=== PATIENT | female | born 1970 | race Caucasian/White ===

== ENCOUNTER 2017-04-01 08:04 | Emergency (ER) | payer MEDICAID ==
[2017-04-01 08:18] VITALS: BP 139/89; PULSE 76; RESP 18; TEMP 98.4; O2SAT 97
--- NOTE | 2017-04-01 08:25 | EDPHY ---
H & P Time Seen by Provider: 04/01/17 08:11 HPI/ROS: CHIEF COMPLAINT: Right hip and leg pain HISTORY OF PRESENT ILLNESS: Patient is been dealing with this for the last 3 years and gets Percocet prescribed by her primary care provider who is Ozzie Guerrero SCRAP CRANE OPERATOR, PDMP reviewed and prescriptions for Percocet dated 01/18, 12/21, 11/23, and 10/26. Patient says the pain is worse over the past 10 days and she has not slept at all for the last 2 days. The patient tells me she has been trying to stay off Percocet and just did not get a prescription filled February. She describes pain in her right lower back and buttock radiating down her hip into her right thigh. Not associated with weakness or numbness in extremities or bowel or bladder trouble. This is identical in quality location and type to her previous pain but is just worse in severity. REVIEW OF SYSTEMS: No fever or chills PAST MEDICAL HISTORY: As in HPI, , bunionectomy Social history: No recent alcohol General Appearance: Alert and conversant, cooperative. No lumbar spine tenderness to palpation. Tenderness over the right sciatic notch. No change in pain with hip rotation or axial loading on the right. Normal reflexes 2+ patellar bilateral and symmetric. Toes downgoing, no clonus, strength and sensation intact on the right and left legs. Straight leg raising negative bilaterally. Emergency Department course/MDM: Patient presents with acute exacerbation of her sciatica. She tells me her primary care provider's out of town until the end of the month. She is requesting Percocet to help her sleep. Call is placed to her primary care provider's office at 8:23 a.m.; no response or call back. Rx for #11, all further pain medication to be prescribed by PCP. Smoking Status: Never smoked Constitutional: Initial Vital Signs Temperature (C) 36.9 C 04/01/17 08:10 Heart Rate 76 04/01/17 08:10 Respiratory Rate 18 04/01/17 08:10 Blood Pressure 139/89 H 04/01/17 08:10 O2 Sat (%) 97 04/01/17 08:10 O2 Delivery Mode Room Air Allergies/Adverse Reactions: No Known Allergies Allergy (Verified 07/17/15 11:20) Home Medications: Medication Instructions Recorded Oxycodone-Acetaminophen 5-325 07/17/15 Prazosin HCl 04/01/17 oxyCODONE/APAP 5/325 [Percocet] 1 tab PO HS PRN #11 tab 04/01/17 MDM/Departure - Depart Disposition: Home, Routine, Self-Care Clinical Impression: Right hip pain, Sciatica of right side Condition: Good Instructions: Sciatica (ED) Additional Instructions: Further pain medications will need to be obtained through the office of Dominik Guerrero NP your primary rail car painter/sandblaster. Please return if you get weakness or numbness in your right leg or any trouble with bowel or bladder. Prescriptions: oxyCODONE/APAP 5/325 [Percocet] 1 tab PO HS PRN #11 tab PRN Reason: Pain Referrals: Suzy Burgos MD [Primary Care Provider] - As per Instructions
== END 2017-04-01 08:38 | disposition home or self-care (01) ==
LOC: CED 08:04
DX: M25.551 Pain in right hip (principal); M54.31 Sciatica, right side

== ENCOUNTER 2017-10-04 14:21 | Emergency (ER) | payer MEDICAID ==
[2017-10-04 14:35] VITALS: BP 122/75; PULSE 82; RESP 16; TEMP 98.4; O2SAT 95
--- NOTE | 2017-10-04 15:17 | EDPHY ---
H & P Stated Complaint: INJURED L 2ND TOE, STUBBED IT Time Seen by Provider: 10/04/17 15:08 HPI/ROS: CHIEF COMPLAINT: Ft toe pain HISTORY OF PRESENT ILLNESS: Patient is a 46-year-old female who comes to the emergency department complaining of pain of her left 2nd toe. She states that she stubbed it against a bookcase this morning. She is concerned because she has hardware in that toe and in her foot from a previous bunionectomy last year. She has pain just at the tip of her toe. Normal sensation and movement. REVIEW OF SYSTEMS: Constitutional: denies: chills, fever, recent illness, recent injury EENTM: denies: blurred vision, double vision, nose congestion Respiratory: denies: cough, shortness of breath Cardiac: denies: chest pain, irregular heart rate, lightheadedness, palpitations Gastrointestinal/Abdominal: denies: abdominal pain, diarrhea, nausea, vomiting, blood streaked stools Genitourinary: denies: dysuria, frequency, hematuria, pain Musculoskeletal: See HPI Skin: denies: lesions, rash, jaundice, bruising Neurological: denies: headache, numbness, paresthesia, tingling, dizziness, weakness Hematologic/Lymphatic: denies: blood clots, easy bleeding, easy bruising Immunologic/allergic: denies: HIV/AIDS, transplant EXAM: GENERAL: Well-appearing, well-nourished and in no acute distress. HEAD: Atraumatic, normocephalic. EYES: Pupils equal round and reactive to light, extraocular movements intact, sclera anicteric, conjunctiva are normal. ENT: TMs normal, nares patent, oropharynx clear without exudates. Moist mucous membranes. NECK: Normal range of motion, supple without lymphadenopathy or JVD. LUNGS: Breath sounds clear to auscultation bilaterally and equal. No wheezes rales or rhonchi. HEART: Regular rate and rhythm without murmurs, rubs or gallops. ABDOMEN: Soft, nontender, normoactive bowel sounds. No guarding, no rebound. No masses appreciated. BACK: No CVA tenderness, no spinal tenderness, step-offs or deformities EXTREMITIES: Minor bruising to distal aspect of left 2nd toe. Tender to palpation. No obvious deformity NEUROLOGICAL: Cranial nerves II through XII grossly intact. Normal speech, normal gait. 5/5 strength, normal movement in all extremities, normal sensation PSYCH: Normal mood, normal affect. SKIN: No lacerations or abrasions. Warm, dry, normal turgor, no visible rashes or lesions. Source: Patient Exam Limitations: No limitations - Personal History LMP (Females 10-55): 15-21 Days Ago Current Tetanus Diphtheria and Acellular Pertussis (TDAP): Yes Tetanus Vaccine Date: WITHIN 10 YRS - Medical/Surgical History Hx Asthma: No Hx Chronic Respiratory Disease: No Hx Diabetes: No Hx Cardiac Disease: No Hx Renal Disease: No Hx Cirrhosis: No Hx Alcoholism: No Hx HIV/AIDS: No Hx Splenectomy or Spleen Trauma: No Other PMH: csection x3, bunionectomy, degenerative disc disease. Chronic right hip pain - Family History Significant Family History: No pertinent family hx - Social History Smoking Status: Never smoked Alcohol Use: Sober Drug Use: None Constitutional: Initial Vital Signs Temperature (C) 36.9 C 10/04/17 14:33 Heart Rate 82 10/04/17 14:33 Respiratory Rate 16 10/04/17 14:33 Blood Pressure 122/75 H 10/04/17 14:33 O2 Sat (%) 95 10/04/17 14:33 O2 Delivery Mode Room Air Allergies/Adverse Reactions: No Known Allergies Allergy (Verified 07/17/15 11:20) Home Medications: Medication Instructions Recorded Oxycodone-Acetaminophen 5-325 07/17/15 Prazosin HCl 04/01/17 oxyCODONE/APAP 5/325 [Percocet] 1 tab PO HS PRN #11 tab 04/01/17 Medical Decision Making - Diagnostics Imaging Results: Imaging Impressions Toe X-Ray 10/04/17 14:50 Impression: 1. Nondisplaced fracture base of the left second toe distal phalanx with intra- articular involvement. 2. Arthrodesis involving the left second PIP joint and first tarsometatarsal joint. Imaging: Discussed imaging studies w/ freight caller Radiologist Procedures: Procedure: Splint placement. A toe splint and postop shoe was applied. After application of the splint I returned and re-examined the patient. The splint was adequately immobilizing the joint and distal to the splint the patient's circulation and sensation was intact. ED Course/Re-evaluation: We discussed the patient's x-ray results. She is reassured. I will splint her toe in extension and offer postop shoe and have her follow up with her imaging manager. She is happy with this plan and is relieved that it is not involve the prosthetics. She declines further workup or testing at this time and is eager to go home. We discussed indications for returning to the emergency department. Differential Diagnosis: Partial list of the Differential diagnosis considered include but were not limited to; toe fracture, contusion and although unlikely based on the history and physical exam, I also considered tendon injury, vascular injury. I discussed these differential diagnoses and the plan with the patient as well as the usual and expected course. The patient understands that the diagnosis is provisional and that in medicine we are not always correct and that further workup is often warranted. Usual and customary warnings were given. All of the patient's questions were answered. The patient was instructed to return to the emergency department should the symptoms at all worsen or return, otherwise to followup with the physician as we discussed. Departure - Departure Disposition: Home, Routine, Self-Care Clinical Impression: Toe fracture, left Qualifiers: Encounter type: initial encounter Toe: lesser toe Fracture type: closed Phalanx : distal Fracture alignment: displaced Qualified Code(s): S92.532A - Displaced fracture of distal phalanx of left lesser toe(s), initial encounter for closed fracture Condition: Fair Instructions: Toe Fracture (ED) Referrals: YULIYA ROSENBERG,Mikey [Primary Care Provider] - As per Instructions Sandra Andino DPM [Doctor of Podiatric Medicine] - As per Instructions
== END 2017-10-04 15:15 | disposition home or self-care (01) ==
LOC: CED 14:21
DX: S92.532A Displaced fracture of distal phalanx of left lesser toe(s), initial encounter for closed fracture (principal); W22.8XXA Striking against or struck by other objects, initial encounter
CPT/HCPCS: 73660-PO; L4386

== ENCOUNTER 2018-01-09 10:23 | Emergency (ER) | payer MEDICAID ==
[2018-01-09 10:40] VITALS: BP 151/82; PULSE 75; RESP 18; TEMP 98; O2SAT 96
--- NOTE | 2018-01-09 10:44 | EDPHY ---
H & P Time Seen by Provider: 01/09/18 10:33 HPI/ROS: This patient complains of a painful burning rash to her left upper back and now chest over the past 4-5 days. She has never had this rash before. She reports red bumps in blisters. She thinks that it may be shingles. She has had more stress in her life recently. She does have a history of chickenpox as a child. She notes no other associated symptoms. She states that peak intensity of the burning pain is 8/10. Currently it is moderate intensity. She has no rash other than the 1 described in the left thoracic back and chest. She came in by private vehicle for evaluation of the symptoms. ROS: Constitutional: No fevers. HEENT: No URI symptoms. No intraoral lesions. No eye symptoms. Integumentary: No draining from the rash. 5 point ROS is otherwise negative. Past Medical/Surgical History: Chickenpox as a child Smoking Status: Never smoked Physical Exam: Physical Exam Vital signs are normal. General: No acute distress Eyes: Pupils equal and react to light. Extraocular motions are intact. No conjunctival injection Lungs: No respiratory distress. Cardiac: Brisk capillary refill is intact throughout. Pulses are 2+ and symmetric in the affected extremity. Skin: Patient has erythematous papules and vesicle lesions in a dermatomal distribution starts in the left thoracic back and wraps around to the left chest in the same dermatome. No petechia or purpura. No draining lesions. Neuro: Alert and oriented x3 with no sensorimotor deficits. Initial differential diagnosis: Zoster, contact dermatitis, doubt cellulitis Constitutional: Initial Vital Signs Temperature (C) 36.6 C 01/09/18 10:35 Heart Rate 75 01/09/18 10:35 Respiratory Rate 18 01/09/18 10:35 Blood Pressure 151/82 H 01/09/18 10:35 O2 Sat (%) 96 01/09/18 10:35 O2 Delivery Mode Room Air Allergies/Adverse Reactions: No Known Allergies Allergy (Verified 07/17/15 11:20) Home Medications: Medication Instructions Recorded Lidocaine [Lidoderm] 1 each TP DAILY #15 adh..patch 01/09/18 Valacyclovir HCl [Valtrex] 1,000 mg PO TID #21 tab 01/09/18 MDM/Departure - [facility] ED Course/Re-evaluation: Discussion: Lesions are clinically consistent with shingles/zoster. I counseled the patient regarding this and answered all her questions prior to discharge home. - Depart Disposition: Home, Routine, Self-Care Clinical Impression: Zoster Qualifiers: Herpes zoster complications: without complications Qualified Code(s): B02.9 - Zoster without complications Condition: Good Instructions: Shingles (ED) Additional Instructions: Diagnosis: Zoster (shingles) Plan: Ibuprofen Tylenol for pain Lidoderm patches as well as needed. Valtrex antiviral as prescribed. Follow up with primary care physician for any ongoing symptoms that persist beyond the next 10 days Return for any worsening despite the treatment plan Prescriptions: Lidocaine [Lidoderm] 1 each TP DAILY #15 adh..patch Valacyclovir HCl [Valtrex] 1,000 mg PO TID #21 tab Referrals: KAREN CHAVIS [Other] - As per Instructions
== END 2018-01-09 11:00 | disposition home or self-care (01) ==
LOC: CED 10:23
DX: B02.9 Zoster without complications (principal)